=== PATIENT | female | born 1980 | race Caucasian/White ===

== ENCOUNTER 2021-07-22 06:30 | Inpatient (IN) | payer OTHER, SELFPAY ==
[2021-07-22] VITALS (51 sets, daily range): BP systolic 85–128; BP diastolic 43–83; PULSE 25–87; RESP 12–18; TEMP 36.2–36.7; O2SAT 89–100; BMI 26.4
--- OUTSIDE RECORDS SUMMARY | 2021-07-22 06:36 | XMS_ITS | Encounter Summary ---
:1980 Author Reason for Visit return OB visit Assessment and Plan 1. Advanced maternal age Discussion Note: None recorded.Patient educational handouts: No information available. Plan of Care Reminders Provider Appointments Post-Op 08/18/2021 Thiago Duval MD 10 10:20AM Lab None ? ? recorded. Referral None ? ? recorded. Procedures None ? ? recorded. Surgeries None ? ? recorded. Imaging None ? ? recorded. Medications Name Start Date ? ? amitriptyline 50 mg tablet ? TAKE 1 TABLET BY MOUTH EVERYDAY AT BEDTIME buprenorphine 8 mg-naloxone 2 mg sublingual film ? PLACE 1/2 FILM UNDER THE TONGUE AND ALLOW TO DISSOLVE TWICE DAILY buspirone 10 mg tablet ? TAKE 1 TABLET BY MOUTH TWICE A DAY famotidine 40 mg tablet ? TAKE 1 TABLET BY MOUTH AT BEDTIME Fluzone Quad 2017-18(PF) 60 mcg(15 mcgx4)/0.5 mL intra muscular ? syringe valacyclovir 500 mg tablet ? TAKE 1 TABLET BY MOUTH TWICE DAILY Notes: PNV Medications Administered None recorded. Vitals Height Weight Blood Pressure 6 ft 197 lbs 118/72 mm[Hg] Results Lab Results None recorded. Allergies Code Code System Name Reaction Severity Onset NK
--- OUTSIDE RECORDS SUMMARY | 2021-07-22 06:36 | XMS_ITS ---
:1980 Author Care Team Providers Name Role Phone Thiago Duval Primary Care Provider Unavailable Allergies Code Code System Name Reaction Severity Status Onset NKDA ? Medications Name Status Start Date Stop Date ? ? acetaminophen 300 mg-codeine 30 mg Completed ? 02/03/2019 tablet amitriptyline 50 mg tablet Active ? Not a vailable amoxicillin 500 mg capsule Completed ? 02/03 amoxicillin 500 mg tablet Completed ? 2018 amoxicillin 875 mg tablet Completed ? 2016 buprenorphine 8 mg-naloxone 2 mg sublingual film Active ? Not available PLACE 1/2 FILM UNDER THE TONGUE AND ALLOW TO DISSOLVE TWICE [place] L[place] buspirone 10 mg tablet Active ? Not avail able buspirone 5 mg tablet Completed ? 04/14/2021 TAKE ONE TABLET BY MOUTH TWICE A DAY ciprofloxacin 500 mg tablet Completed ? 01/18 cyclobenzaprine 10 mg tablet Completed ? escitalopram 5 mg tablet Completed ? 021 TAKE 1 TABLET BY MOUTH EVERY DAY famotidine 40 mg tablet Active ? Not avai lable Fluzone Quad (PF) 60 mcg(15 Active ? Not available mcgx4)/0.5 mL intramuscular syringe hydrocodone 5 mg-acetaminophen 325 mg Completed ? 11/23/2017 tablet ibuprofen 600 mg tablet Completed ? 11/24/19 18 ibuprofen 800 mg tablet Completed ? 02/04/20 19 TAKE 1 TABLET BY MOUTH WITH FOOD 3 TIMES A DAY NEEDED indomethacin 25 mg capsule Completed ? 02/03 methylprednisolone 4 mg tablets in a Completed ? 02/03/2019 dose pack
--- OUTSIDE RECORDS SUMMARY | 2021-07-22 06:36 | XMS_ITS | Encounter Summary ---
[...] Vitals Height Weight Blood Pressure 6 ft 199 lbs 122/78 mm[Hg] Results Lab Results None recorded. Allergies Code Code System Name Reaction Severity Onset NK
--- OUTSIDE RECORDS SUMMARY | 2021-07-22 06:36 | XMS_ITS | Encounter Summary ---
[...] Vitals Height Weight Blood Pressure 6 ft 198 lbs 118/74 mm[Hg] Results Lab Results None recorded. Allergies Code Code System Name Reaction Severity Onset NK
--- OUTSIDE RECORDS SUMMARY | 2021-07-22 06:37 | XMS_ITS ---
:1980 Author Care Team Providers Name Role Phone JACQUI TEJEDA MD Primary Care Provider [phone] Allergies Code Code System Name Reaction Severity Status Onset NKDA ? Medications Name Status Start Date Stop Date ? ? acetaminophen 300 mg-codeine 30 mg Completed ? 02/03/2019 tablet amoxicillin 500 mg capsule Completed ? 02/03 amoxicillin 500 mg tablet Completed ? 2018 amoxicillin 875 mg tablet Completed ? 2016 ciprofloxacin 500 mg tablet Completed ? 01/18 cyclobenzaprine 10 mg tablet Completed ? Fluzone Quad 2016-(PF) 60 mcg(15 Active ? Not available mcgx4)/0.5 [...] in a Completed ? 02/03/2019 dose pack [id number]-ddbwnyfgi-nmbefdlyu 3.5 Completed ? 05/25/2017 mg-10,000 unit/mL-1 % ear drops,susp nitrofurantoin monohydrate/macrocrystals 100 mg capsule Complete d ? 05/25/2017 TAKE ONE CAPSULE BY MOUTH EVERY 12 HOURS FOR 7 DAYS ofloxacin 0.3 % eye drops Completed ? 2018 oseltamivir 75 mg capsule Completed ? 2017 prednisone 20 mg tablet Completed ? 03/29/20 17 TK 3 TS PO D P
--- OUTSIDE RECORDS SUMMARY | 2021-07-22 06:37 | XMS_ITS | Encounter Summary ---
[...] Vitals Height Weight Blood Pressure 6 ft 188 lbs 118/76 mm[Hg] Results Lab Results None recorded. Allergies Code Code System Name Reaction Severity Onset N
--- OUTSIDE RECORDS SUMMARY | 2021-07-22 06:37 | XMS_ITS | Encounter Summary ---
:1980 Author Reason for Visit return OB visit Assessment and Plan 1. Routine care ? glucose tolerance test, ge stational, 1-hour ? HIV (1+2) Ab screen, serum ? hemoglobin + hematocrit, b lood ? cytomegalovirus (cmv) igg Ab, quantitative, serum ? parvovirus B19 igg Ab, ser um ? varicella-zoster igg Ab sc reen, serum Discussion Note: None recorded.Patient educational handouts: No information available. Plan of Care Reminders Provider Appointments Post-Op 10 Siddharth Duval, 08/18/2021 10:20AM Lab Glucose Tolerance [place] Test, Gestational, 1-Hour 05/12/2021 [facility] (Lab) ? HIV (1+2) Ab [address] Screen, Serum 05/12/2021 [facility] (Lab) ? Hemoglobin + [address] Hematocrit, Blood 05/12/2021 [facility] (Lab) ? Cytomegalovirus [place] ([facility]) Igg Ab, Quantitative, 05/12/2021 [facility] Serum (Lab) ? Parvovirus B19 Igg [place] Ab, Serum 05/12/2021 [facility] (Lab) ? Varicella-zoster [place] Igg Ab Screen, Serum 05/12/2021 [facility] (Lab) Referral None recorded. ?
--- OUTSIDE RECORDS SUMMARY | 2021-07-22 06:37 | XMS_ITS | Encounter Summary ---
[...] Vitals Height Weight Blood Pressure 6 ft 192 lbs 112/68 mm[Hg] Results Lab Results None recorded. Allergies Code Code System Name Reaction Severity Onset N
--- NOTE | 2021-07-22 07:04 | LDADM ---
This patient, Kendal Hassan, was admitted to Labor/Delivery/Recovery 119 on 07/22/21 at 06:30. Plans for section, pain management and were discussed with patient. Patient/family oriented to hospital policies and general routines including ID bracelet, bed and alarms, visiting hours, pain management, procedures, bathroom and other care routines, personal items, smoking policy, room service/diet and guest tray routines, security routines, and visiting hours. Patient/Family are encouraged to report perceived risks to care and to ask questions if they do not understand what they are told or what they should do. See OBIX for further documentation.
[2021-07-22 07:17] LABS: Basophils Percent Auto 0.2 % (0.2-1.2); Eosinophils Absolute Auto 0.1 K/mm3 (0-0.3); Eosinophils Percent Auto 0.5 % (0-4.4); Hemoglobin 12.3 g/dL (12.0-15.0); Immature Granulocyte Absolute 0.04 K/mm3 (0.00-0.031); Immature Granulocyte Percent A 0.4 % (0-0.5); Lymphocytes Absolute Auto 1.95 K/mm3 (0.9-3.2); Lymphocytes Percent Auto 20.6 % (18.3-44.2); Mean Corpuscular HGB Conc 33.2 g/dl (32-36); Mean Corpuscular Hemoglobin 29.1 pg (26-34); Mean Corpuscular Volume 87.7 fl (80-100); Mean Platelet Volume 11.8 fl (7.4-10.4); Monocytes Absolute Auto 0.7 K/mm3 (0.1-0.6); Neutrophils Absolute Auto 6.8 K/mm3 (1.3-6.7); Neutrophils Percent Auto 71.3 % (45.5-73.1); Platelet Count Result 275 k/mm3 (150-375); Red Blood Count 4.22 M/mm3 (4.2-5.4); Red Cell Distribution Width 13.4 % (11.5-14.5); White Blood Count 9.5 K/mm3 (4.5-10.0)
[2021-07-22] MEDS: LACTATED RINGERS 1,000 ML 125 ML IV CONT (07:44)
--- NOTE | 2021-07-22 08:44 | PM.IMHP ---
H&P: HPI History of Present Illness Date/Time: 07/22/21 08:44 41-year-old 5 para 2111 presents for repeat delivery at 39 weeks. records are on the chart and essentially uncomplicated. Underwent genetic counseling for advanced maternal age which was normal. Also discussed permanence failure at increase risk of ectopic in her regret of tubal ligation she strongly desires to proceed. Chief Complaint: Review of Systems Review of Systems: All systems reviewed & are unremarkable except as noted in HPI and below PMFSH Family History Family History Mother Glioblastoma Social History Social History Smoking status: Never smoker Substance use: former Spiritual care concerns: No Meds Home Medications and Allergies Home Medications Medication Instructions Recorded Confirmed Type PNV cmb#95-ferrous fumarate-FA 1 tablet PO DAILY 06/27/21 06/27/21 History [] amitriptyline 50 mg PO HS 06/27/21 06/27/21 History buprenorphine-naloxone 0.5 tablet SUBLINGUAL DAILY 06/27/21 06/27/21 History buspirone 10 mg PO BID 06/27/21 06/27/21 History famotidine 40 mg PO HS 06/27/21 06/27/21 History Allergies Allergy/AdvReac Type Severity Reaction Status Date / Time No Known Allergies Allergy Unverified 01/17/19 09:31 Vital Signs Vital Signs - 24 hr 07/22/21 06:46 07/22/21 06:47 Pulse Rate 87 78 Blood Pressure 128/64 123/83 Exam Const: General: cooperative and healthy appearing Resp: Effort & Inspection: normal respiratory effort Auscultation: clear to auscultation bilaterally Cardio: Rate: regular rate Rhythm: regular rhythm GI: Auscultation: normal bowel sounds : Bimanual exam- vagina & uterus: enlarged ( Fundal height 40cm heart tones 140) H&P: Results Labs Labs: Short CBC 07/22/21 Range/Units 06:55 WBC 9.5 (4.5-10.0) K/mm3 Hgb 12.3 (12.0-15.0) g/dL Hct 37.0 (37.0-47.0) % Plt Count 275 (150-375) k/mm3 Assessment and Plan Assessment and plan (1) 39 weeks gestation of : Code(s): Z3A.39 - 39 weeks gestation of Status: Acute (2) Previous delivery affecting : Code(s): O34.219 - Maternal care for unspecified type scar from previous delivery Status: Acute (3) Encounter for female sterilization procedure: Code(s): Z30.2 - Encounter for sterilization Status: Acute Additional Plan proceed with repeat delivery and bilateral tubal ligation.
[2021-07-22] MEDS: KETOROLAC 30 MG/ML VIAL (*BKC) IV PUSH ×2 (09:45→17:30)
--- NOTE | 2021-07-22 09:57 | P.PCNOB_ITS ---
OB - Delivery Note Procedure Procedure: Procedures Operation Date: 07/22/21 09:00 <No data on this case meets the specified criteria> events: Previous Route of delivery: (With left salpingectomy (prior right ectopic so no tube present)) Specimen: Yes Quantitative Blood Loss (ml): 575 Anesthesia type: Spinal Disposition: floor Narrative: Patient prepped and draped in usual manner for this procedure. Pfannenstiel incision was made which was carried down to the fascia. Fascia was then extended bilaterally length of the skin incision and also superiorly inferiorly dissected away from the rectus muscles. Peritoneum was entered bladder flap was developed and the uterus was scored with clear fluid noted. Vertex was delivered without difficulty rest of baby as well with a nuchal cord reduced. Placenta removed manually and plan uterus was exteriorized cleared of membranes and clots and closed using 0 Monocryl in a running interlocking manner. Two small areas of bleeding at the incision were rendered hemostatic using a [id number]-dv-[id number] suture. Right tube was surgically absent left tube was grasped Jose Alejandro clamp doubly ligated with plain suture and removed. Uterus was turned to the abdomen tubal stump was intact and hemostatic and uterine incision was a step intact and hemostatic as well. Fascia was then approximated using 0 Vicryl from left angle midline right angle to midline with good approximation noted. Subcutaneous tissue was approximated 0 plain suture and giancarlo were used to the skin edges. Patient was then sent to recovery room in stable condition. [place] Baby Weeks of gestation at delivery: 39 gender: Male Weight (pounds): 7 Weight (ounces): 11 score one minute: 8 score five minutes: 9
[2021-07-22] MEDS: ceFAZolin 2 GM/D5W 50 ML 2 GM/50 ML BAG IVPB (10:12)
[2021-07-22] MEDS: OXYTOCIN 30 UNITS/NS 500 ML 30 UNITS/500 ML BAG 125 UNITS IV CONT (12:02)
[2021-07-22] MEDS: busPIRone HCL 10 MG TABLET PO (17:30)
[2021-07-22] MEDS: HYDROcodone/acetaminophen (*CRX) 10-325 MG TABLET 1 TAB PO ×2 (19:04→22:05)
--- NOTE | 2021-07-22 19:05 | OBPPTRN ---
1216 Patient transferred to post room #287 via stretcher. Support person present. Oriented to unit, room, information board, rooming in, admission packet and security measures. Patient verbalizes understanding.
[2021-07-22] MEDS: DEXTROSE 5%/0.45% SOD CHL 1,000 ML 125 ML IV CONT (19:41)
[2021-07-22] MEDS: AMITRIPTYLINE HCL 25 MG TABLET 50 MG PO (21:25)
[2021-07-22] MEDS: FAMOTIDINE 20 MG TABLET 40 MG PO (21:25)
[2021-07-23] MEDS: IBUPROFEN 600 MG TABLET PO ×4 (01:29→23:10)
[2021-07-23] MEDS: HYDROcodone/acetaminophen (*CRX) 10-325 MG TABLET 1 TAB PO ×7 (01:29→23:10)
[2021-07-23 04:00] VITALS: BP 119/74; PULSE 65; RESP 16; TEMP 36.8; O2SAT 99
[2021-07-23 04:59] LABS: Basophils Percent Auto 0.1 % (0.2-1.2); Eosinophils Percent Auto 0.3 % (0-4.4); Hematocrit 31.6 % (37.0-47.0); Hemoglobin 10.4 g/dL (12.0-15.0); Immature Granulocyte Absolute 0.06 K/mm3 (0.00-0.031); Immature Granulocyte Percent A 0.5 % (0-0.5); Lymphocytes Absolute Auto 1.58 K/mm3 (0.9-3.2); Lymphocytes Percent Auto 14.5 % (18.3-44.2); Mean Corpuscular HGB Conc 32.9 g/dl (32-36); Mean Corpuscular Hemoglobin 29.5 pg (26-34); Mean Corpuscular Volume 89.5 fl (80-100); Mean Platelet Volume 11.6 fl (7.4-10.4); Monocytes Absolute Auto 0.9 K/mm3 (0.1-0.6); Monocytes Percent Auto 7.9 % (2.6-8.5); Neutrophils Absolute Auto 8.4 K/mm3 (1.3-6.7); Neutrophils Percent Auto 76.7 % (45.5-73.1); Platelet Count Result 237 k/mm3 (150-375); Red Blood Count 3.53 M/mm3 (4.2-5.4); Red Cell Distribution Width 13.3 % (11.5-14.5); White Blood Count 10.9 K/mm3 (4.5-10.0)
[2021-07-23 08:05] VITALS: BP 131/58; PULSE 80; RESP 18; TEMP 36.2; O2SAT 100
[2021-07-23] MEDS: busPIRone HCL 10 MG TABLET PO ×2 (08:37→17:01)
[2021-07-23] MEDS: MULTIVIT/MIN/PREN/FOL AC/IRON TABLET 1 TAB PO (08:37)
[2021-07-23] MEDS: DOCUSATE SODIUM 100 MG CAPSULE PO ×2 (08:37→17:00)
[2021-07-23] MEDS: SIMETHICONE 80 MG TAB.CHEW PO (08:37)
--- NOTE | 2021-07-23 09:02 | WPDANLDPN2 ---
Anes-Prog Note L&D Date/Time: 07/23/21 09:02 Comfortable throughout: section Neuraxial method: spinal Epidural/Spinal procedure site: clean & non-tender Neuro status: Neuro function grossly intact. Cardiovascular status: normal Respiratory status: normal Airway patency: baseline Mental status: baseline Post-Op hydration status: normal Vital Signs: Last Vital Signs Temp 97.1 F L 07/23/21 08:05 Pulse 80 07/23/21 08:05 Resp 18 07/23/21 08:05 BP 131/58 L 07/23/21 08:05 Pulse Ox 100 07/23/21 08:05 Pain score (VAS): 0 I/O: Intake & Output 07/22/21 07/23/21 07/23/21 23:59 07:59 15:59 Intake Total 1100 1000 Output Total 2900 1950 Balance -1800 -950 Post-procedural complaints: none Patient feedback: Patient satisfied with anesthetic care.
--- NOTE | 2021-07-23 09:02 | WPDANLDNPN2 ---
Anes-Prog Note L&D-Neuraxial Date/Time: 07/23/21 09:02 Neuraxial medications: intrathecal PF morphine Opiod-related complaints: none Patient feedback: Patient satisfied with post-operative pain management.
[2021-07-23 09:34] LABS: Rapid Plasma Reagin Non-Reactive (NonReactive)
--- NOTE | 2021-07-23 12:28 | PM.OBDSVD ---
DS: Admitting Diagnosis Discharge Date 07/24/2021 Admitting Diagnosis DS: Discharge Diagnosis Discharge Diagnosis (1) 39 weeks gestation of : Code(s): Z3A.39 - 39 weeks gestation of Status: Acute OB - DS: Summary OB Procedures : None OB Procedures Intrapartum: and Tubal ligation OB Procedures: : None Peripartum Data Procedures: Procedures Operation Date: 07/22/21 09:00 Actual Procedure Side Surgeon p Repeat Section With Bilateral Tubal Ligation Thiago Duval MD Time Spent with Patient Time attestation: Total time spent providing and/or coordinating discharge services: DS: Data Data Completed and Pending Completed studies during hospitalization: Pending at discharge 07/22/21 10:11 Surgical [PTH] Routine Labs on day of discharge: Labs from last 24 hours 07/23/21 07/22/21 04:03 06:55 WBC 10.9 H RBC 3.53 L Hgb 10.4 L Hct 31.6 L MCV 89.5 MCH 29.5 MCHC 32.9 RDW 13.3 Plt Count 237 MPV 11.6 H Immature Gran % (Auto) 0.5 Neut % (Auto) 76.7 H Lymph % (Auto) 14.5 L [place] % (Auto) 7.9 Eos % (Auto) 0.3 Baso % (Auto) 0.1 L Lymph # (Auto) 1.58 [place] # (Auto) 0.9 H Eos # (Auto) 0.0 Baso # (Auto) 0.0 Abs Immat Gran (auto) 0.06 H Absolute Neuts (auto) 8.4 H Absolute Nucleated RBC 0.0 Nucleated RBC % 0.0 RPR Non-reactive Discharge Plan Discharge Discharging Clinician: Thiago Duval Patient Disposition: Home, Self-Care Activity: as tolerated Diet: as tolerated Wound Care Instructions: incision open to air Discharge Instructions: office wednesday for staple removal Patient Instructions: Antibiotic Form Stand Alone Forms: General Discharge Information Follow-up/Referrals: Thiago Duval MD [Physician] - 3 Weeks Discharge Medications: New hydrocodone-acetaminophen 5-325 mg Tablet 1 tablet PO Q6H Qty: 20 RF: 0 ibuprofen 600 mg Tablet 600 mg PO Q6H PRN (Reason: Cramping) Qty: 30 RF: 0 Continued famotidine 40 mg Tablet 40 mg PO HS RF: 0 amitriptyline 50 mg Tablet 50 mg PO HS RF: 0 buspirone 10 mg Tablet 10 mg PO BID RF: 0 buprenorphine-naloxone 8-2 mg Tablet, Sublingual 0.5 tablet SUBLINGUAL DAILY RF: 0 PNV cmb#95-ferrous fumarate-FA [] 28 mg iron- 800 mcg Tablet 1 tablet PO DAILY RF: 0 Date of admission: 07/22/21 06:30 Primary Care Provider: PHYSICIAN,COMPLIANCE OFFICER Admitting Provider: Thiago Duval Attending physician on admission: Thiago Duval Condition: Stable
[2021-07-23 19:40] VITALS: BP 111/70; PULSE 86; RESP 16; TEMP 36.9; O2SAT 99
[2021-07-23] MEDS: AMITRIPTYLINE HCL 25 MG TABLET 50 MG PO (20:06)
[2021-07-23] MEDS: FAMOTIDINE 20 MG TABLET 40 MG PO (20:06)
[2021-07-24] MEDS: HYDROcodone/acetaminophen (*CRX) 10-325 MG TABLET 1 TAB PO ×5 (02:35→17:05)
[2021-07-24] MEDS: SIMETHICONE 80 MG TAB.CHEW PO (07:12)
[2021-07-24] MEDS: IBUPROFEN 600 MG TABLET PO ×3 (07:12→20:59)
[2021-07-24] MEDS: DOCUSATE SODIUM 100 MG CAPSULE PO ×2 (07:12→17:05)
[2021-07-24] MEDS: busPIRone HCL 10 MG TABLET PO ×2 (07:12→17:05)
[2021-07-24 08:00] VITALS: BP 113/64; PULSE 75; RESP 18; TEMP 37.1
--- NOTE | 2021-07-24 15:34 | PCCCNOTE ---
Care Coordination Note: Met with pt. today during rounds. This is pt.'s first boy she has two other girls at home. Pt. is current with [facility] services reports she plans to add the baby to services at discharge. Reports she lives at home with EUN Cheng. She has all necessary equipment at home for baby including a car seat, crib, clothing, diapers and bottles. Pt. reports she has been taking prescribed medication including Buspar, buprenorphine, and amitriptyline during . She reports her OB was aware. Pt. reports she is taking Buprenorphine due to previous substance abuse, has been taking her medication as prescribed. Provided resources. Pt. denies any further needs. Anticipates discharge tomorrow.
[2021-07-24 20:00] VITALS: BP 118/75; PULSE 77; RESP 18; TEMP 36.2; O2SAT 100
[2021-07-24] MEDS: HYDROcodone/acetaminophen (*CRX) 5-325 MG TABLET 1 TAB PO (20:59)
[2021-07-24] MEDS: AMITRIPTYLINE HCL 25 MG TABLET 50 MG PO (21:00)
[2021-07-24] MEDS: FAMOTIDINE 20 MG TABLET 40 MG PO (21:01)
[2021-07-25] MEDS: HYDROcodone/acetaminophen (*CRX) 10-325 MG TABLET 1 TAB PO ×3 (02:13→11:55)
[2021-07-25] MEDS: SIMETHICONE 80 MG TAB.CHEW PO (07:28)
[2021-07-25] MEDS: DOCUSATE SODIUM 100 MG CAPSULE PO (07:28)
[2021-07-25] MEDS: IBUPROFEN 600 MG TABLET PO (07:30)
[2021-07-25 07:35] VITALS: PULSE 75; RESP 18; O2SAT 100
--- NOTE | 2021-07-25 08:49 | PC.NURSE ---
PT introductions made and plan of care discussed per post op c section, pain management, bottle feeding, daily care activities and pending discharge to home. PT received instructions per one to one discussion, mom baby care guide and demonstration during this shift. PT sole recipient of such instructions and no barriers to learning identified. Pt verbalized understanding of such care.
[2021-07-25 08:50] VITALS: BP 128/72; PULSE 75; RESP 18; TEMP 36.4; O2SAT 100
--- NOTE | 2021-07-25 09:10 | PC.NURSE ---
Patient viewed the discharge video Mother & Baby Care, The First Two Weeks . Patient was given the opportunity and encouraged to ask questions. Patient verbalized understanding of information shared and has been given the mother/baby guide for home reference.
[2021-07-25] MEDS: busPIRone HCL 10 MG TABLET PO (10:08)
--- NOTE | 2021-07-25 11:30 | PC.NURSE ---
PT received discharge instructions per protocol and verbalized understanding of such instructions.
--- NOTE | 2021-07-25 12:03 | PC.NURSE ---
PT discharged to home ambulatory accompanied by infant in safety seat and walked to waiting spouse in car.
--- NOTE | 2021-07-29 07:34 | PM.OBDSVD ---
DS: Admitting Diagnosis Discharge Date 07/25/21 Admitting Diagnosis OB - DS: Summary OB Procedures : None OB Procedures Intrapartum: OB Procedures: : None Peripartum Data Procedures: Procedures Operation Date: 07/22/21 09:00 Actual Procedure Side Surgeon p Repeat Section With Bilateral Tubal Ligation Thiago Duval MD Time Spent with Patient Time attestation: Total time spent providing and/or coordinating discharge services: DS: Data Data Completed and Pending Completed studies during hospitalization: Pending at discharge 07/22/21 10:11 Surgical [PTH] Routine Discharge Plan Discharge Discharging Clinician: Thiago Duval Patient Disposition: Home, Self-Care Activity: no shower and as tolerated Diet: as tolerated Wound Care Instructions: incision open to air Discharge Instructions: Education: Mom and Baby Guide Given to: Mother Follow-Up: Call your delivering provider's office for an appointment to be seen in: 3 weeks Mom and baby should come [facility] for the follow-up appointment. Appointment Date/Time: July 28, 2021 at 11:00 am What to expect at your follow-up visit: Blood Pressure Check Call [phone] if you are unable to keep your appointment time. BREAST CARE: * Wear a snug supportive bra. * For engorgement discomfort: Bottle Feeding: * May apply ice packs ABDOMINAL INCISION: (if applicable) * Allow incision to air dry * Do NOT use lotions for powders on your incision * When showering, allow soap and water to run over the incision, but do not wash incision PERINEAL CARE: * Until bleeding stops, use your randi bottle after urinating * Change your pad frequently throughout the day * You may take sitz baths several times a day (fill your bathtub with warm water and soak for 20 minutes.) Do NOT bathe in the water * No tub baths until seen by your physician - You may shower ACTIVITY: * Rest as much as possible. * Do not exercise or lift anything heavier than your baby (such as laundry or other children.) * Avoid stairs or driving as much as possible. * Do not put anything into the vagina. No douching, tampons, or sexual activity until seen by physician. NOTIFY PHYSICIAN IF YOU HAVE ANY QUESTIONS OR IF ANY OF THE FOLLOWING SYMPTOMS OCCUR: * If your incision becomes red, swollen, or more painful than what you have experienced in the hospital. * If your vaginal bleeding becomes foul smelling. * If your vaginal bleeding becomes more heavy than a period or if your bleeding changes from pink to bright red. However, you may pass an occasional walnut-sized clot once or twice for the first week . * If you experience a sharp, shooting pain in you calves. * If you discover a hard, reddened area on your breast or if you experience flu-like symptoms. * If you have a DIET: * Eat regular, well-balanced meals. * Drink plenty of fluids daily. If , drink to thirst.office wednesday for staple removal Patient Instructions: Antibiotic Form Stand Alone Forms: General Discharge Information Follow-up/Referrals: Thiago Duval MD [Physician] - 3 Weeks Discharge Medications: New hydrocodone-acetaminophen 5-325 mg Tablet 1 tablet PO Q6H Qty: 20 RF: 0 ibuprofen 600 mg Tablet 600 mg PO Q6H PRN (Reason: Cramping) Qty: 30 RF: 0 Continued famotidine 40 mg Tablet 40 mg PO HS RF: 0 amitriptyline 50 mg Tablet 50 mg PO HS RF: 0 buspirone 10 mg Tablet 10 mg PO BID RF: 0 buprenorphine-naloxone 8-2 mg Tablet, Sublingual 0.5 tablet SUBLINGUAL DAILY RF: 0 PNV cmb#95-ferrous fumarate-FA [] 28 mg iron- 800 mcg Tablet 1 tablet PO DAILY RF: 0 Date of admission: 07/22/21 06:30 Primary Care Provider: PHYSICIAN,WAREHOUSE PICKER Admitting Provider: Thiago Duval Attending physician on admission:
== END 2021-07-25 12:03 | disposition home or self-care (01) | DRG 540 ==
LOC: ANHLDR 06:34 → ANHOB2 14:04
PROVIDERS: Admitting Provider Obstetrics & Gynecology; Visit Provider Obstetrics & Gynecology
PROC: 10D00Z1 Extraction of Products of Conception, Low, Open Approach (ICD-10-PCS; CPT 59514; principal; 2021-07-22 09:00)
DX: O34.219 Maternal care for unspecified type scar from previous cesarean delivery (principal); Z30.2 Encounter for sterilization; O69.81X0 Labor and delivery complicated by cord around neck, without compression, not applicable or unspecified; Z3A.39 39 weeks gestation of pregnancy; Z37.0 Single live birth; Z23 Encounter for immunization
CPT/HCPCS: 36415; 85025; 86592; 86850; 86900; 86901; 88302; 90471; 90653; A9270; G0008; J0131; J0690; J1885; J2274; J2590; J7120

== ENCOUNTER 2021-12-01 08:52 | Emergency (ER) | payer OTHER, SELFPAY ==
[2021-12-01 09:08] VITALS: BP 117/80; PULSE 80; RESP 16; TEMP 36.4; O2SAT 99
--- NOTE | 2021-12-01 09:21 | ED.EAR ---
HPI - Ear Problem General Chief complaint: Ear Stated complaint: Ear Pain Time Seen by Provider: 12/01/21 09:24 Source: patient Mode of arrival: ambulatory Limitations: no limitations History of Present Illness HPI Narrative: 41-year-old female presented for complaints of left ear pain for about 4 days. Also endorses sore throat, worse today. Denies associated sinus pressure congestion, nasal drainage, cough, nausea, fevers or chills. She took ibuprofen for symptoms. Denies sick contacts. MD Complaint: ear pain Related Data Home Medications Medication Instructions Recorded Confirmed amitriptyline 50 mg PO HS 06/27/21 12/01/21 buspirone 10 mg PO BID 06/27/21 12/01/21 famotidine 40 mg PO HS 06/27/21 12/01/21 Allergies Allergy/AdvReac Type Severity Reaction Status Date / Time No Known Allergies Allergy Verified 12/01/21 09:26 Review of Systems Review of Systems: CONSTITUTIONAL: Denies malaise, chills, or fever. EYES: Denies visual changes, redness, or discharge. ENT: Denies rhinorrhea, congestion, sinus pain, Reports ear pain and sore throat. CARDIOVASCULAR: Denies chest pain, palpitations, or edema. RESPIRATORY: Denies cough or dyspnea. GASTROINTESTINAL: Denies abdominal pain, nausea, vomiting, diarrhea SKIN: Denies rash or itching. MUSCULOSKELETAL: Denies myalgia. NEUROLOGIC: Denies headache. All systems reviewed & are unremarkable except as noted in HPI and below PMFSH Surgical History Surgical History Delivery by section (10/26/17) repeat c/s Delivery by section (10/04/09) Primary c/s - breech presentation Delivery by section (07/22/21) rpt c/s w/ Tubal ligation Family History Family History Mother Glioblastoma Social History Social History Smoking status: Never smoker Substance use: former Spiritual care concerns: No Comments At time of signature, agree with nursing past medical, surgical, social and family history. There is no relevant family history pertinent to the presenting complaint Exam Narrative: GENERAL: Well-appearing, in no acute distress. HEAD: Normocephalic EYES: PERRLA, conjunctivae clear ENT: Nares clear. Mucous membranes moist. TM pearly davison with dull light reflex bilaterally; no tragal tenderness. Oropharynx not erythematous without lesions. Tonsils not enlarged and without exudate, no drooling, no hoarseness, no trismus, uvula midline. NECK: Supple. No lymphadenopathy CHEST: Clear to auscultation, breath sounds equal. No wheezing, rhonchi, rales, or stridor. No respiratory distress, speaks in full sentences. HEART: Regular rate and rhythm. No murmur heard. SKIN: Warm, dry, no rash. NEURO: Alert and oriented x3. PSYCH: Normal mood and affect Course Course Emergency Course: Patient is aware of diagnosis, understands and agrees to treatment plan. Anticipatory guidance given. Patient agrees to follow-up as directed and is aware of reasons to seek care at the emergency department. Portions of this record may have been created with voice recognition software Level of Care: Express Care Visit Vital Signs Vital signs: Vital Signs Temperature 97.5 F L 12/01/21 09:08 Pulse Rate 80 12/01/21 09:08 Respiratory Rate 16 12/01/21 09:08 Blood Pressure 117/80 12/01/21 09:08 Pulse Oximetry 99 12/01/21 09:08 Temperature 97.5 F L 12/01/21 09:08 Pulse Rate 80 12/01/21 09:08 Respiratory Rate 16 12/01/21 09:08 Blood Pressure 117/80 12/01/21 09:08 Pulse Oximetry 99 12/01/21 09:08 Reviewed Medical Decision Making [facility] Narrative Medical decision making narrative: Exam findings show no acute concerns or changes; patient is non-toxic appearing and is in no distress. Sx c/w URI. She does not have pcp to f/u, abx called in if sx worsen/persist. Patient is
== END 2021-12-01 09:55 | disposition home or self-care (01) ==
PROVIDERS: Emergency Provider Nurse Practitioner Family
DX: J02.9 Acute pharyngitis, unspecified (principal)
CPT/HCPCS: 87081; 87880; 99213; G0463

== ENCOUNTER 2022-08-16 12:22 | Emergency (ER) | payer OTHER, SELFPAY ==
[2022-08-16 14:00] VITALS: BP 151/82; PULSE 84; RESP 18; TEMP 36.3; O2SAT 96
--- NOTE | 2022-08-16 14:26 | ED.URI ---
HPI - URI/Sore Throat General Chief Complaint: Upper Respiratory Infection Stated Complaint: Fever, Cough Time Seen by Provider: 08/16/22 14:26 Source: patient and RN notes reviewed Mode of arrival: ambulatory Limitations: no limitations History of Present Illness HPI Narrative: 42-year-old female presented for complaints headache, sore throat, cough over the last 4 days. She endorses back pain and fever at the onset. Fever has resolved. She denies shortness of breath, wheezing, nausea, vomiting, diarrhea. She has taken 2- COVID tests since the onset. She is taking DayQuil and NyQuil for symptoms. Endorses her children have similar symptoms. MD elicited complaint: cough Related Data Home Medications Medication Instructions Recorded Confirmed amitriptyline 50 mg tablet 50 mg PO HS 06/27/21 08/16/22 buspirone 10 mg tablet 10 mg PO BID 06/27/21 08/16/22 famotidine 40 mg tablet 40 mg PO HS 06/27/21 08/16/22 Allergies Allergy/AdvReac Type Severity Reaction Status Date / Time No Known Allergies Allergy Verified 08/16/22 14:04 Review of Systems Review of Systems: ROS per HPI [facility] Past Medical History Medical History Abnormal stillborn stillborn at 7 months, born with gastroschisis Surgical History Surgical History History of 10/04/09 primary c/s--breech 10/26/17 rpt c/s 07/22/21 rpt c/s w/tubal ligation History of tubal ligation (07/22/21) Family History Family History Mother Glioblastoma Social History Social History Smoking status: Never smoker Substance use: former Spiritual care concerns: No Exam Narrative: GENERAL: Ill-appearing, nontoxic EYES: PERRLA, conjunctivae clear ENT: Mucous membranes moist. TM pearly davison with dull light reflex bilaterally; no tragal tenderness. Oropharynx erythematous without lesions or exudate, no drooling, no hoarseness, no trismus, uvula midline. CHEST: Clear to auscultation, breath sounds equal. Frequent moist congested nonproductive cough. No wheezing, rhonchi, rales, or stridor. No respiratory distress, speaks in full sentences. HEART: Regular rate and rhythm. No murmur heard. SKIN: Warm, dry, no rash. NEURO: Alert and oriented x3. PSYCH: Normal mood and affect Course Course Emergency Course: Patient is aware of diagnosis, understands and agrees to treatment plan. Anticipatory guidance given. Patient agrees to follow-up as directed and is aware of reasons to seek care at the emergency department. Portions of this record may have been created with voice recognition software Level of Care: Express Care Visit Vital Signs Vital signs: Vital Signs Temperature 97.4 F L 08/16/22 14:00 Pulse Rate 84 08/16/22 14:00 Respiratory Rate 18 08/16/22 14:00 Blood Pressure 151/82 H 08/16/22 14:00 Pulse Oximetry 96 08/16/22 14:00 Oxygen Delivery Room Air 08/16/22 14:00 Temperature 97.4 F L 08/16/22 14:00 Pulse Rate 84 08/16/22 14:00 Respiratory Rate 18 08/16/22 14:00 Blood Pressure 151/82 H 08/16/22 14:00 Pulse Oximetry 96 08/16/22 14:00 Oxygen Delivery Room Air 08/16/22 14:00 reviewed MDM - URI/Sore Throat MDM Narrative Medical decision making narrative: Advised supportive measures and signs/symptoms to go to the ER. Pt is appropriate for outpt treatment and f/u. Differential Diagnosis Differential diagnosis: Likely upper respiratory infection, sinusitis and viral infection Discharge Plan Discharge Clinical Impression: Upper respiratory infection Patient Disposition: Home, Self-Care Condition: Stable Instructions: Upper Respiratory Infection (ED) Additional Instructions: Recommend Flonase spray and Zyrtec (or Claritin/Calli) over the counter Cough syr
== END 2022-08-16 14:45 | disposition home or self-care (01) ==
PROVIDERS: Emergency Provider Nurse Practitioner Family
DX: J06.9 Acute upper respiratory infection, unspecified (principal)
CPT/HCPCS: 99213; G0463

== ENCOUNTER 2023-07-05 08:47 | Emergency (ER) | payer OTHER, SELFPAY ==
[2023-07-05 09:23] VITALS: BP 110/66; PULSE 90; RESP 20; TEMP 36.6; O2SAT 100
--- NOTE | 2023-07-05 09:26 | ED.URI ---
HPI - URI/Sore Throat General Chief Complaint: Upper Respiratory Infection Stated Complaint: throat pain Source: patient Mode of arrival: ambulatory Limitations: no limitations History of Present Illness HPI Narrative: 43-year-old female presents to [facility] with complaints of sore throat, cough and runny nose for the past 3 days. Patient reports that her son and daughter were diagnosed and treated for strep throat last week. Patient reports that she has a to attend in 3 days is concerned biking other sick. Patient shortness of breath, wheezing, nausea vomiting or diarrhea. MD elicited complaint: cough and sore throat Onset (ago): day(s) (3) Able to tolerate fluids by mouth: Yes Exacerbating factors: swallowing Relieving factors: nothing Context: sick contacts Treatments prior to arrival: none Related Data Allergies Allergy/AdvReac Type Severity Reaction Status Date / Time No Known Allergies Allergy Verified 07/05/23 09:29 Review of Systems Constitutional: Constitutional: Denies chills, Denies fatigue, Denies fever(s) and Denies weakness ENT: Denies dizziness, Denies nasal congestion and Reports sore throat Comments: Runny nose Cardiovascular: Cardiovascular: Denies chest pain Respiratory: Respiratory: Reports cough, Denies dyspnea and Denies wheezing Gastrointestinal: Gastrointestinal: Denies diarrhea, Denies nausea and Denies vomiting Musculoskeletal: Musculoskeletal: Denies arthralgias and Denies joint swelling Integumentary/Breasts: Skin/Breast: Denies pruritus, Denies erythema and Denies rash Neurologic: Denies dizziness, Denies syncope and Denies headache(s) [facility] Past Medical History Medical History Abnormal stillborn stillborn at 7 months, born with gastroschisis Surgical History Surgical History History of 10/04/09 primary c/s--breech 10/26/17 rpt c/s 07/22/21 rpt c/s w/tubal ligation History of tubal ligation (07/22/21) Family History Family History Mother Glioblastoma Social History Social History Smoking status: Never smoker Substance use: former Spiritual care concerns: No Comments At time of signature, I agree with nursing past medical, surgical, social and family history. There is no relevant family history pertinent to the presenting complaint. Exam Const: General: healthy appearing and no acute distress Nutritional Appearance: well nourished Orientation/consciousness: patient oriented x3 Limitations: no limitations HENMT: Head: normal to inspection Ears: external ears normal, TM's normal bilaterally and EAC's normal Face/Nose/Sinus: Normal external nose present Mouth: Yes Normal oral and palatal mucosa present, Yes lip normal and Yes moist mucous membranes Teeth and gingiva: dentition normal Throat: uvula midline Other: mild erythema noted to posterior pharynx. No exudate or peritonsillar abscess noted Eyes: Conjunctivae: conjunctivae normal Neck: Neck: normal visual inspection Resp: Effort & Inspection: normal respiratory effort and not labored Auscultation: clear to auscultation bilaterally, no crackles, no rales, no rhonchi and no wheezes Cardio: Rate: regular rate Rhythm: regular rhythm Heart sounds: no murmurs Skin: General skin exam: normal color Rashes: no rashes Wounds: no wounds Neuro: Speech: normal speech Gait exam (Neuro): Normal gait present Psych: Affect: normal affect Attitude: cooperative Course Course Level of Care: Express Care Visit Vital Signs Vital signs: Vital Signs Temperature 36.6 C 07/05/23 09:23 Pulse Rate 90 07/05/23 09:23 Respiratory Rate 20 07/05/23 09:23 Blood Pressure 110/66 07/05/23 09:23 Pulse Oximetry 100 07/05/23 09:23
== END 2023-07-05 09:57 | disposition home or self-care (01) ==
PROVIDERS: Emergency Provider Nurse Practitioner Family
DX: J02.9 Acute pharyngitis, unspecified (principal)
CPT/HCPCS: 99213; G0463

== ENCOUNTER 2025-09-17 10:31 | Emergency (ER) | payer OTHER, SELFPAY ==
--- NOTE | 2025-09-17 10:39 | ED_ITS ---
HPI - URI/Sore Throat General Chief Complaint: Upper Respiratory Infection Stated Complaint: URI Symptoms Time Seen by Provider: 09/17/25 10:55 Source: patient, RN notes reviewed and old records reviewed Mode of arrival: ambulatory Limitations: no limitations History of Present Illness HPI Narrative: 45-year-old female presents to the [facility] with 3 day history of sore throat runny nose. Has been taking Mucinex. Denies fevers. Related Data Home Medications ?Medication ?Instructions ?Recorded ?Confirmed ?Last Taken ?Type medroxyprogesterone 150 mg/mL mg IM 09/17/25 Unknown History intramuscular syringe Allergies Allergy/AdvReac Type Severity Reaction Status Date / Time No Known Allergies Allergy Verified 09/17/25 10:52 Review of Systems Review of Systems: All systems reviewed & are unremarkable except as noted in HPI and below Constitutional: Constitutional: Reports no additional constitutional complaints ENT: Reports as per HPI Cardiovascular: Cardiovascular: Reports no additional cardiovascular complaints, Denies chest pain and Denies dyspnea Respiratory: Respiratory: Reports no additional respiratory complaints, Denies chest congestion, Denies cough and Denies dyspnea Musculoskeletal: Musculoskeletal: Reports no additional musculoskeletal complaints Integumentary/Breasts: Skin/Breast: Reports system reviewed and no additional complaints, except as docu PMFSH Past Medical History Medical History Abnormal stillborn stillborn at 7 months, born with gastroschisis Surgical History Surgical History History of tubal ligation (07/22/21) History of 10/04/09 primary c/s--breech 10/26/17 rpt c/s 07/22/21 rpt c/s w/tubal ligation Family History Family History Mother Glioblastoma Social History Social History Smoking status: Never smoker Substance use: former Spiritual care concerns: No Comments At the time of my signature, I reviewed and agree with the nursing past medical, surgical, social, and family history. There is no relevant family history pertinent to the patient complaint. Exam Const: General: cooperative, healthy appearing, comfortable, no acute distress, well developed, alert and well nourished Nutritional Appearance: well nourished Orientation/consciousness: patient oriented x3 Limitations: no limitations HENMT: Head: normal to inspection Ears: hearing grossly normal bilaterally, external ears normal, TM's normal bilaterally, EAC's normal, mastoids normal and no periauricular adenopathy Face and sinus: normal facial exam Mouth: Yes Normal oral and palatal mucosa present, Yes lip normal, Yes tongue normal and Yes moist mucous membranes Throat: posterior oropharynx normal, uvula midline and no uvular edema Eyes: General: appearance normal, both eyes and all related structures Alignment and Position: alignment normal Neck: Neck: normal visual inspection, full ROM, no lymphadenopathy and no meningeal signs Chest: Chest palpation & inspection: normal inspection of the chest Resp: Effort & Inspection: normal respiratory effort and able to speak in complete sentences Auscultation: clear to auscultation bilaterally, no crackles, no rales, no rhonchi and no wheezes Cardio: Rate: regular rate Skin: General skin exam: normal color and no rashes or lesions noted Neuro: General: patient oriented x3, gait normal, moves all extremities and no meningeal signs Cognition (Neuro): normal cognition Speech: normal speech Gait exam (Neuro): Normal gait present Extrem: General: normal to inspection, full ROM, capillary refill normal and normal gait Psych: Appearance: grossly normal and well kempt Mental Status: mental status grossly normal Speech and movement: Normal speech and movement present and Clear speech present Affect: normal affect Attitude: cooperative Course Course Level of Care: Express Care Visit Vital Signs Vital signs: Vital Signs Temperature 98.4 F 09/17/25 10:46 Pulse Rate 63 09/17/25 10:46 Respiratory Rate 18 09/17/25 10:46 Blood Pressure 114/53 L 09/17/25 10:46 Pulse Oximetry 100 09/17/25 10:46 Oxygen Delivery Room Air 09/17/25 10:46 Temperature 98.4 F 09/17/25 10:46 Pulse Rate 63 09/17/25 10:46 Respiratory Rate 18 09/17/25 10:46 Blood Pressure 114/53 L 09/17/25 10:46 Pulse Oximetry 100 09/17/25 10:46 Oxygen Delivery Room Air 09/17/25 10:46 reviewed MDM MDM Narrative Medical decision making narrative: Patient sitting in exam room. Patient is nontoxic, vitals stable. Patient 3 day history of URI symptoms, sore throat, runny nose. Patient is COVID positive and strep positive. Appropriate for outpatient treatment with close follow-up Discharge instructions reviewed with patient, as well as provided in writing per nursing staff. The instructions also include specific and strict return/GO TO THE ER as well as f/u information. All questions have been answered, and the patient deny any further questions with discharge and discharge plan. Some parts of this dictation were generated by voice recognition software and may contain typographical and/or grammatical inaccuracies. Differential Diagnosis Differential Diagnosis: Differential diagnostic considerations for upper respiratory infection include upper respiratory infection, croup, otitis media, sinusitis, viral infection, bronchitis, influenza, pharyngitis, strep, uvulitis.? Lab Data [facility] Lab Attestation statement: I personally reviewed the patient's lab results. Labs: Lab Results 09/17/25 09/17/25 Range/Units 10:54 11:07 POC Influenza A Ag Negative Negative (Negative) POC Influenza B Ag Negative Negative (Negative) POC SARS CoV-2 Ag Positive Positive (Negative) POC Grp A Strep Screen Positive (Negative) Reviewed Discharge Plan Discharge Clinical Impression: COVID-19, Strep pharyngitis Patient Disposition: Home Condition: Stable Instructions: Antibiotic Form, Strep Throat (DC), COVID-19 (Coronavirus Disease 2019) (ED), COVID-19: Slow the Coronavirus Spread (ED) Additional Instructions: After 24-48 hours on antibiotics, Throw the toothbrush away, start using a new one. Please be sure to wash bed linens especially pillow cases. Repeat once you finish the antibiotics. Do not share drinks. Take Motrin alternating with Tylenol for pain and fever alternating every 4 hours. Increase fluids, avoid caffeine. Give plenty of water, juice, Gatorade, Pedialyte, ice pops in Jell-O Follow up with Primary provider if not getting better this week For new or worsening symptoms go directly to the emergency room Your rapid strep swab was was positive in the clinic today. You will be treated with an antibiotic called amoxicillin Your rapid COVID test was also positive Your rapid flu test was negative It is very important to treat your symptoms. Drink plenty of water, Gatorade, Pedialyte, ice pops or Jell-O. -Alternate Tylenol and Motrin per package directions for fever or pain. You can alternate every 4 hours -Antihistamine medication such as Zyrtec/Claritin/Calli during the day can help improve symptoms. -doing daily nasal irrigations can help relieve pressure your sinuses. Things like a Neti pot -Use Flonase twice a day for 5 days then daily to help reduce the inflammation and dry up your sinuses. -You can also use Mucinex. Be sure to drink plenty of water with this medication at least 8 ounces with every dose and it is important to drink 8 to 10 glasses of water per day. Water is a natural decongestant -Eat and drink things that are easy to swallow, like tea or soup, or popsicles. -Oral rinses such as: Salt water gargles and/or may use topical anesthetic (eg. Chloraseptic spray) or lozenges to relieve dryness or throat pain). -Frequent hand washing or hand mattress finisher is one of the best ways to prevent spread of infection. -Using a vaporizer or humidifier at night will also help thin secretions and help with coughing up phlegm. -Follow up with primary care provider in 7-10 days if condition is not improving - For new or worsening symptoms go directly to the nearest ER Patient Language: Slovak Prescriptions: New amoxicillin 500 mg capsule 500 mg PO Q12H Qty: 20 0RF No Action medroxyprogesterone 150 mg/mL syringe IM Follow-up/Referrals: PHYSICIAN,[facility] [Primary Care Provider, Internal Medicine] Stand Alone Forms: Work/School Release IP Time of Disposition: 11:13
[2025-09-17 10:46] VITALS: BP 114/53; PULSE 63; RESP 18; TEMP 36.9; O2SAT 100
[2025-09-17 11:03] LABS: EDSTREPNEGPOS1 Positive (Negative)
[2025-09-17 11:12] LABS: EDCOVIDSCREEN Positive (Negative); EDINFLUASCREEN Negative (Negative); EDINFLUBSCREEN Negative (Negative)
[2025-09-17 11:12] LABS: EDCOVIDSCREEN Positive (Negative); EDINFLUASCREEN Negative (Negative); EDINFLUBSCREEN Negative (Negative)
== END 2025-09-17 11:26 | disposition home or self-care (01) ==
PROVIDERS: Emergency Provider Nurse Practitioner
DX: U07.1 COVID-19 (principal); J02.0 Streptococcal pharyngitis
CPT/HCPCS: 87426; 87804; 87880; 99213; G0463